=== PATIENT | male | born 1965 | race Caucasian/White ===

== ENCOUNTER 2023-02-21 08:50 | Emergency (ER) | payer OTHER ==
[2023-02-21] MEDS ORDERED: Bacitracin 1 PK ONE (09:23)
[2023-02-21] MEDS ORDERED: Boostrix 0.5 ML (Tdap) VIAL (>/=7 yrs of age) ONE ×2 (09:24→09:37)
== END 2023-02-21 09:55 | disposition home or self-care (01) ==
LOC: NAV ERS 08:50
DX: S61.531A Puncture wound without foreign body of right wrist, initial encounter (principal); I10 Essential (primary) hypertension; F17.220 Nicotine dependence, chewing tobacco, uncomplicated; W26.8XXA Contact with other sharp object(s), not elsewhere classified, initial encounter; Z23 Encounter for immunization
CPT/HCPCS: 90471; 90715